=== PATIENT | male | born 1980 | race Caucasian/White ===

== ENCOUNTER 2017-06-09 06:42 | Emergency (ER) | payer OTHER ==
[2017-06-09] MEDS ORDERED: Lidocaine 2% 20 ML MDV INFILT ONE (06:43)
[2017-06-09] MEDS ORDERED: Ciprofloxacin 500 MG Tab PO ONE (07:29)
--- NOTE | 2017-06-09 07:29 | EDM.PDOC ---
ED HPI GENERAL MEDICAL PROBLEM - General Chief Complaint: Laceration Stated Complaint: THUMB LAC Time Seen by Provider: 06/09/17 06:44 Source of Information: Reports: Patient, Family History Limitations: Reports: No Limitations - History of Present Illness INITIAL COMMENTS - FREE TEXT/NARRATIVE: 36 y.o.w.m came to the ed after he injured his right thumb by a glass at home. No FB in wound, minor bleed, no loss of function. No other acute medical issues. BP 113/65 pulse 68 RR 18 Pulse ox 100% on RA Temp 36.8 PCN causes hives. Onset: Today Onset Date: 06/09/17 Onset Time: 05:00 Duration: Minutes: Location: Reports: Upper Extremity, Right Quality: Reports: Sharp, Other (lac) Severity: Mild Improves with: Reports: Rest Worsens with: Reports: Movement Context: Reports: Trauma Associated Symptoms: Reports: No Other Symptoms R thumb Pain Score (Numeric/FACES): 4 - Related Data Allergies Allergy/AdvReac Type Severity Reaction Status Date / Time meperidine [From Demerol] Allergy Hives Verified 06/09/17 07:12 Penicillins Allergy Cannot Verified 06/09/17 07:12 Remember Sulfa (Sulfonamide Allergy Cannot Verified 06/09/17 07:12 Antibiotics) Remember Home Meds: Home Meds Cephalexin [Keflex] 500 mg PO QID #40 cap 06/09/17 [Rx] Ciprofloxacin HCl [Cipro] 500 mg PO BID #20 tablet 06/09/17 [Rx] ED ROS GENERAL - Review of Systems Review Of Systems: See Below Constitutional: Reports: No Symptoms HEENT: Reports: No Symptoms Respiratory: Reports: No Symptoms Cardiovascular: Reports: No Symptoms Endocrine: Reports: No Symptoms GI/Abdominal: Reports: No Symptoms : Reports: No Symptoms Musculoskeletal: Reports: No Symptoms Skin: Reports: Wound (laceratioin right thumb) Neurological: Reports: No Symptoms Psychiatric: Reports: No Symptoms Hematologic/Lymphatic: Reports: No Symptoms Immunologic: Reports: No Symptoms ED EXAM, SKIN/RASH Exam: See Below Exam Limited By: No Limitations General Appearance: Alert, WD/WN, Mild Distress Eye Exam: Bilateral Eye: Normal Inspection Ears: Normal External Exam Nose: Normal Inspection Throat/Mouth: Normal Inspection Head: Atraumatic, Normocephalic Neck: Normal Inspection, Supple, Non-Tender Respiratory/Chest: No Respiratory Distress, Lungs Clear, Normal Breath Sounds Cardiovascular: Normal Peripheral Pulses, Regular Rate, Rhythm Peripheral Pulses: 1+: Radial (L) GI/Abdominal: Normal Bowel Sounds, Soft, Non-Tender, No Organomegaly (Male) Exam: Deferred Rectal (Males) Exam: Deferred Back Exam: Normal Inspection, Full Range of Motion Extremities: Normal Range of Motion, Non-Tender, No Pedal Edema, Normal Capillary Refill Neurological: Alert, Oriented, CN II-XII Intact, Normal Cognition, Normal Gait Psychiatric: Normal Affect, Normal Mood Skin: Warm, Dry, Normal Color, Wound/Incision (right thumb) Location, Skin: Upper Extremity, Right Lymphatic: No Adenopathy ED SKIN PROCEDURES - Laceration/Wound Repair Right Finger Lac/Wound length In cm: 2.5 (right thumb) Appearance: Superficial, Clean Distal NVT: Neuro & Vascular Intact, No Tendon Injury Anesthetic Type: Local Local Anesthesia - Lidocaine (Xylocaine): 2% Plain Local Anesthetic Volume: 2cc Skin Prep: Providone-Iodine (Betadine) Saline Irrigation (cc's): 5 Exploration/Debridement/Repair: Wound Explored, In a Bloodless Field, Explored to Base Suture Size: 4-0 # of Sutures: 7 Tetanus Status Addressed: Other (UTD) Complications: No Course - Vital Signs Text/Narrative:: 36 y.o.w.m came to the ed after he injured his right thumb by a glass at home. No FB in wound, minor bleed, no loss of function. No other acute medical issues. BP 113/65 pulse 68 RR 18 Pulse ox 100% on RA Temp 36.8 PE: Right thumb LAC Procedure: Please see above Impression: Right thumb LAC, repaired Tx: Wound repair, Abx Reexam: Improved Plan: D/C with instructions Last Recorded V/S: Last Vital Signs Temp 36.7 C 06/09/17 06:44 Pulse 75 06/09/17 06:44 Resp 18 06/09/17 06:44 BP 113/65 06/09/17 06:44 Pulse Ox 100 06/09/17 06:44 - Orders/Labs/Meds Meds: Medications Discontinued Medications Generic Name Dose Route Start Last Admin Trade Name Freq PRN Reason Stop Dose Admin Cephalexin 500 mg 06/09/17 07:36 06/09/17 07:42 Keflex PO 01/30/18 07:37 500 mg ONETIME ONE Administration Ciprofloxacin 500 mg 06/09/17 07:29 Ciprofloxacin Hcl PO 06/09/17 07:30 ONETIME ONE Departure - Departure Time of Disposition: 07:25 Disposition: Home, Self-Care 01 Condition: Good Clinical Impression: Laceration - Discharge Information Prescriptions: Cephalexin [Keflex] 500 mg PO QID #40 cap Ciprofloxacin HCl [Cipro] 500 mg PO BID #20 tablet Instructions: Laceration Care, Adult Referrals: PCP,None [Primary Care Provider] - Forms: ED Department Discharge Additional Instructions: Please apply neosporine to wound twice a day for 5 days, wound check in 2 days suture removal in 7-10 days, please come back if your symptoms get worse acutely.
[2017-06-09] MEDS ORDERED: Cephalexin 500 MG Cap PO ONE (07:36)
== END 2017-06-09 07:50 | disposition home or self-care (01) ==
LOC: FB.ED 06:42
DX: S61.011A Laceration without foreign body of right thumb without damage to nail, initial encounter (principal); W25.XXXA Contact with sharp glass, initial encounter; Y92.009 Unspecified place in unspecified non-institutional (private) residence as the place of occurrence of the external cause
CPT/HCPCS: 12002; 99283; A9270